=== PATIENT | female | born 2000 | race Two or more races ===

== ENCOUNTER → 2024-10-20 | Emergency (ER) | payer OTHER ==
[~2024-10-20] VITALS: Ht 152.4 cm; Wt 54.4 kg
[~2024-10-20] MED LIST: KETOROLAC TROMETHAMINE 60 MG VIAL IM ONE; KETOROLAC TROMETHAMINE 60 MG VIAL IM STA
== END | disposition home or self-care (01) ==
LOC: ER 03:02
DX: R07.89 Other chest pain (principal); M25.512 Pain in left shoulder